=== PATIENT | female | born 1975 | race Caucasian/White ===

== ENCOUNTER 2022-10-11 08:56 | Outpatient (CLI) | payer BC, SELFPAY ==
--- OUTSIDE RECORDS SUMMARY | 2022-10-11 08:58 | XMS_ITS | Clinical Summary ---
:1975 Author Organization [employer] [facility] [place] [address] Care Team Providers Name Role Phone Ariella Galicia PUNCH MACHINE OPERATOR Primary Care Provider Allergies Active Allergy Reactions Severity Noted Date Comments Minocycline Rash 11/11/2017 Medications Medication Sig Dispensed Refills Start Date End Date Status valACYclovir (VALTREX) as needed for 1 07/18/2019 Active 1 gram tablet cold sores buPROPion (WELLBUTRIN Take 1 Tablet by 0 07/09/2022 Active SR) 150 mg mouth once daily. Sustained-Release tablet meloxicam 15 mg Take 1 Tablet (15 30 Tablet 1 07/22/2022 Active tabletIndications: mg) by mouth once Chronic pain of left daily. knee, Chronic pain of right knee Active Problems Problem Noted Date Tobacco dependence 07/22/2022 Encounters Date Type Specialty Care Team Description 07/22/2022 Ancillary Procedure 07/22/2022 Office Visit Ariella Galicia NP Knee Pain /problem (Bilateral knee pain, effecting movem ent and activities) 07/22/2022 Travel from Last 3 Months Immunizations Name Administration Dates Next Due Influenza Virus, Unspecified 08/25/2016 Influenza, IIV4 11/03/2020, 08/14/2015, 07/25/2014, 08/15 Influenza, IIV4 (=>6mos) MDV 09/05/2019, 08/31/2018, 017 MMR 04/16/1975 Td (Age >=7 Years) 11/19/1993 Tdap 11/18/2016 Family History Medical History Relation Name Comments Arthritis Father osteo Hypertension Father Arthritis Mother fibromyalgia Relation Name Status Comments Father Mother Social History Tobacco Use Types Packs/Day Years Used Date Current Every Day Smoker 0.5 Smokeless Tobacco: Never Used Tobacco Cessation: Ready to Quit: Yes; C ounseling Given: Yes Alcohol Use Standard Drinks/Week Comments Yes 0 (1 standard drink = 0.6 oz pure alcoho l) occasional Alcohol Habits Answer Date Recorded How often do you have a drink containing alcohol? Monthly or less 09/17/2020 How many drinks containing alcohol do you have on a Not aske d typical day when you are drinking? How often do you have six or more drinks on one Not asked occasion? Comment: Not asked Sex Assigned at Date Recorded Not on file Obstetrics History Last Filed Vital Signs Vital Sign Reading Time Taken Comments Blood Pressure 106/80 07/22/2022 8:09 AM CDT Pulse 76 07/22/2022 8:09 AM CDT Temperature 36.8 ??C (98.3 ??F) 07/22/2022 8:09 AM CDT Respiratory Rate 18 07/22/2022 8:09 AM CDT Oxygen Saturation 98% 07/22/2022 8:09 AM CDT Inhaled Oxygen Concentration - - Weight 104.8 kg (231 lb) 07/22/2022 8:09 AM CDT Height 170.3 cm (5' 7.05) 07/22/2022 8:09 AM CDT Body Mass Index 36.13 07/22/2022 8:09 AM CDT Plan of Treatment Health Maintenance Due Date Last Done Comments COVID-19 vaccine series (#1) 1974 Pneumococcal series for age 19-64 01/27/1980 (1 - PCV) HIV for age 15-65 1989 Hepatitis C screening for age 0301/27/1992 18-79 Colonoscopy through age 75 2019 Lipids for age 45-75 2019 Mammogram for age 45-75 11/21/2020 11/21/2019, 09/05/2018, 06/28/2017 Influenza for age 9-49 07/15/2022 11/03/2020, 09/05/2019, 08/31/2018, Additional history exists Pap test for age 21-65 09/25/2022 09/25/2019, 09/25/2019, 07/15/2019 (Completed outside of [facility]), Additional history exists BMI (ht and wt on same day) for 07/22/2023 07/22/2022, 07/16, age 18+ 08/21/2019, Additional history exists Depression screening for age 12+ 07/22/2023 07/22/2022, , 07/18/2019, Additional history exists Tetanus booster 11/18/2026 11/18/2016, 11/19/1993 Tdap Completed 11/18/2016 Procedures Procedure Name Priority Date/Time Associated Diagnosis Comme nts XR KNEE WB 1 VIEW STAT 07/22/2022 9:23 AM Chronic pain of l eft Results for this AP BILATERAL AND 2 CDT knee procedure are in VIEWS BILATERAL Chronic pain of the resul ts right knee section. from Last 3 Months Results XR KNEE WB 1 VIEW AP BILATERAL AND 2 VIEWS BILATERAL (07/22/2022 9:23 AM CDT) Anatomical Region Laterality Modality KNEES Computed Radiography Specimen (Source) Anatomical Collection Method Collection Time Re ceived Time Location / / Volume Laterality 07/22/2022 9:35 AM CDT Narrative 07/22/2022 9:35 AM CDT For Patients: ??As a result of the Cures Act, medical imaging exams and procedure report s are released immediately into your [facility] [employer] medical record. ??You may view this report before your referring provider. ??If you have questions, please contact your health care provider. INDICATION: Chronic mid to left knee pain. TECHNIQUE: Three views each of the right and left k nee. FINDINGS: Left knee: No fracture or dislocation. M ild patellofemoral osteoarthritis and large joint effusion. Femoral tibial joint space and alignment are normal and without evidence for arthritic change or lytic bone destruction. Right knee: No acute fracture or disloca tion. Mild patellofemoral osteoarthritis and minimal joint effusion. Femoral tibial joint spacing alignment and joint integrity are normal. Dictated by Annie Eddy MD @ 07/22/2022 9:35:3 4 AM (Electronically Signed) Procedure Note Jesus Eddy MD - 07/22/2022F ormatting of this note might be different from the original. For Patients: As a result of the Cures Act, medical imaging exams and procedure reports are released immediately into your electronic medical record. You may view this report before your referring provider. If you have questions, please contact [facility] health care provider. INDICATION: Chronic mid to left knee pain. TECHNIQUE: Three views each of the right and left k nee. FINDINGS: Left knee: No fracture or dislocation. M ild patellofemoral osteoarthritis and large joint effusion. Femoral tibial joint space and alignment are normal and without evidence for arthritic change or lytic bone destruction. Right knee: No acute fracture or disloca tion. Mild patellofemoral osteoarthritis and minimal joint effusion. Femoral tibial joint spacing alignment and joint integrity are normal. Dictated by Annie Eddy MD @ 07/22/2022 9:35:3 4 AM (Electronically Signed) Ariella Galicia NP GENERAL IMAGING from Last 3 Months Insurance Payer Benefit Plan / Subscriber ID Effective Dates Phone Addre ss Type Group WC WORKERS WC WORKERS COMP [id number] Effective for [address] [place] [address] BLUE [employer] BL[employer] OF [id number] 2018-Tom [address] [place] [address] [place] (Home) [place] [id number] Breana Pastrana Workers Comp Self [address] [place] (Home) [place] [phone] [id number] (Work) [employer] Employer 11/14/2000 [place] (Home) DEPT [id number] Dora Ardon [phone] [facility] Rebecca DRIVER (Work) [place] [id number] Care Teams Director [employer] Relationship Specialty Start Date End Date Ariella Galicia NP PCP - General Family Practice 11/18/16 [address] [facility] [place] [id number]
--- NOTE | 2022-10-11 09:15 | CRLHL7_ITS ---
For Patients: As a result of the Century Cures Act, medical imaging exams and procedure reports are released immediately into your electronic medical record. You may view this report before your referring provider. If you have questions, please contact your health care provider. BILATERAL SCREENING MAMMOGRAM WITH COMPUTER-AIDED DETECTION AND TOMOSYNTHESIS TECHNIQUE: CC and MLO views were obtained. These mammographic images have been obtained using full-field digital technique. These mammographic images were interpreted with the benefit of computer-aided detection. Breast Tomosynthesis was used in this interpretation. COMPARISON FILM: 11/21/19, 09/05/18, 06/28/17. FINDINGS: There are scattered areas of fibroglandular density IMPRESSION: There is no radiographic evidence for malignancy. ASSESSMENT: BI-RADS Category 2: Benign RECOMMENDATION: Routine screening mammogram in 1 year. A lay language report of this examination will be provided to the patient. Maicol Cordova M.D. Diagnostic Radiologist [email or web address] GABY/Dictated by: Maicol Cordova MD @ 10/11/2022 10:37:00 AM (Electronically Signed)
== END 2022-10-11 08:57 | disposition home or self-care (01) ==
LOC: MAMMO 08:56
PROVIDERS: Visit Provider Obstetrics & Gynecology
DX: Z12.31 Encounter for screening mammogram for malignant neoplasm of breast (principal)
CPT/HCPCS: 77063; 77067

== ENCOUNTER 2023-09-14 13:21 | Outpatient (CLI) | payer BC, SELFPAY | END 2023-09-14 13:22 | disposition home or self-care (01) | PROVIDERS: Visit Provider Obstetrics & Gynecology | DX: Z01.419 Encounter for gynecological examination (general) (routine) without abnormal findings (principal); R63.5 Abnormal weight gain; Z13.6 Encounter for screening for cardiovascular disorders; Z13.1 Encounter for screening for diabetes mellitus; Z13.9 Encounter for screening, unspecified | CPT/HCPCS: 80061; 82947; 84443 ==

== ENCOUNTER 2024-09-27 08:21 | Outpatient (CLI) | payer BC, SELFPAY ==
[2024-09-29 07:38] LABS: HPV Source Cervical; HPV, High Risk by TMA Not Detected
[2024-10-10 16:46] LABS: Pap Test Reviewed by Path Done
== END 2024-09-27 08:22 | disposition home or self-care (01) ==
PROVIDERS: Visit Provider Obstetrics & Gynecology
DX: Z01.419 Encounter for gynecological examination (general) (routine) without abnormal findings (principal); E66.9 Obesity, unspecified; Z12.4 Encounter for screening for malignant neoplasm of cervix; Z13.6 Encounter for screening for cardiovascular disorders; Z13.1 Encounter for screening for diabetes mellitus
CPT/HCPCS: 80061; 82947; 87624; 87625; 88141; 88142

== ENCOUNTER 2024-10-24 08:02 | Outpatient (CLI) | payer BC, SELFPAY ==
--- NOTE | 2024-10-24 08:15 | CRLHL7_ITS ---
For Patients: As a result of the Century Cures Act, medical imaging exams and procedure reports are released immediately into your electronic medical record. You may view this report before your referring provider. If you have questions, please contact your health care provider. BILATERAL SCREENING MAMMOGRAM WITH COMPUTER-AIDED DETECTION AND TOMOSYNTHESIS, 10/24/2024 TECHNIQUE: CC and MLO views were obtained. These mammographic images have been obtained using full-field digital technique. These mammographic images were interpreted with the benefit of computer-aided detection. Breast Tomosynthesis was used in this interpretation. COMPARISON FILM: 10/11/22, 11/21/19, 09/05/18. FINDINGS: There are scattered areas of fibroglandular density IMPRESSION: There is no radiographic evidence for malignancy. ASSESSMENT: BI-RADS Category 2: Benign RECOMMENDATION: Routine screening mammogram in 1 year. A lay language report of this examination will be provided to the patient. Maicol Cordova M.D. Diagnostic Radiologist [email or web address] MAY/pedro: Transcribed: 8:49 am DW/Dictated by: Maicol Cordova MD @ 10/24/2024 12:59:00 PM (Electronically Signed)
== END 2024-10-24 08:03 | disposition home or self-care (01) ==
LOC: MAMMO 08:02
PROVIDERS: Visit Provider Obstetrics & Gynecology
DX: Z12.31 Encounter for screening mammogram for malignant neoplasm of breast (principal)
CPT/HCPCS: 77063; 77067